=== PATIENT | female | born 1980 | race Caucasian/White ===

== ENCOUNTER 2016-09-22 15:56 | Emergency (ER) | payer OTHER ==
[~2016-09-22] VITALS: Ht 170.2 cm; Wt 89.5 kg
[~2016-09-22 15:56] MED LIST: DOCU-41 PO; IBUP-1827 PO; OXYC1TAB24 PO; PREN1TAB69 PO
[2016-09-22 16:22] VITALS: BP 135/87; PULSE 110; RESP 16; O2SAT 100
--- NOTE | 2016-09-22 17:55 | ED.REPORT ---
HPI-Abd Pain F Under 42 Date of Service Sep 22, 2016 ED Provider: [place] History of Present Illness: rigt upper quadrant discomfort increasing over the last month with acid reflux. describes a pressure that is now a pain. no hx of gallbladder issues. vanessa case is primary care. saw primary last week, referred for a ct scan. decreased appitiete, full very fast oatmeal this am with sugar and raisins, at lunch had raisin bread toast with butter, 5/10 now last night was a 7/10 Nursing Notes Stated Complaint: PAIN AND PRESSURE UNDER RIGHT RIBS, SENT FROM Chief Complaint: Female Abdominal Pain Nursing Notes Reviewed: Yes Allergies: Uncoded Allergies: BANDAIDS (Allergy, Unknown, HIVES,BLISTERS, 09/22/16) Scheduled Docusate Sodium (Colace) 100 Mg Capsule 100 MG PO BID Vit/Fe Fumarate/Fa-Expunged Drug, Do (-Expunged Drug, Do Not Renew!) 1 Each Tablet 1 EACH PO DAILY Scheduled PRN Ibuprofen (Ibuprofen) 600 Mg Tablet 600 MG PO Q6H PRN PRN For Pain oxyCODONE-Acetaminophen 5-325 mg (oxyCODONE-Acetaminophen 5-325 mg) 1 Tab Tablet 1-2 TAB PO Q4H PRN PRN For Pain General Time Seen by MD: 17:54 Chief Complaint Abdominal pain Hx Obtained From: Patient Sudden in Onset?: No Symptom Duration: Since onset Severity: Current: Pain level 5 out of 10 Past Medical History Past Medical History Denies: Asthma Past Surgical History Reports: (times 4) Smoking History Never Smoker Social History Alcohol Use: Denies alcohol use Drug Use: Denies drug use Other Social History: Occupation lives with , not working at present 09/22/2016 Ambulatory Status Independent Review of Systems Basic Review of Systems Eyes: Vision NL, No discharge Skin: No bruising, No rash, No itch Psychiatric: Normal thought content Physical Exam Initial Vital Signs Vital Signs (First) Date Time Temp Pulse Resp B/P Pulse Ox O2 Delivery O2 Flow Rate FiO2 09/22/16 16:22 36.6 110 16 135/87 100 Room Air Initial VS: Reviewed, Vital signs normal Head / Eyes: Atraumatic, Normocephalic, PERRL ENT: Mucous membranes moist, Conjunctiva normal, No scleral icterus Neck: Supple, Non-tender, Full range of motion Lymphatic: No lymphadenopathy Extremities: Vascular intact, Neuro intact, No swelling, No tenderness Skin: Warm, Dry, No cyanosis Neurologic: Alert, Oriented, Nonfocal Psychiatric: Mood/affect normal, Behavior normal, Normal thought content General/Constitutional: Awake, Alert, No acute distress, Well appearing, Well developed, Well hydrated Respiratory / Chest: Atraumatic, Breath sounds NL, Breath sounds = bilat, No respiratory distress Cardiovascular: Heart rate NL, Regular rhythm, Heart sounds NL, No gallop Abdomen: Atraumatic, Soft, Non-tender, McBurney's non-tender, No guarding, No rebound, BS normoactive, No distention Back: Atraumatic, Inspection NL, Full range of motion, Painless range of motion Interpretation & Diagnostics Interpretation & Diagnostics: Both CT and US are negative Lab Results Interpretation Result Diagram: 09/22/16 1746 09/22/16 1746 Test 09/22/16 17:46 09/22/16 19:40 White Blood Count 9.3th/mm3 (3.8-10.1) Red Blood Count 4.56mil/mm3 (3.90-5.20) Hemoglobin 10.1g/dL (12.0-15.6) Hematocrit 32.6% (35.0-46.0) Mean Corpuscular Volume 71.5fL (81-100) Mean Corpuscular Hemoglobin 22.1pg (27.0-35.0) Mean Corpuscular Hemoglobin Concent 31.0% (32.0-37.0) Red Cell Distribution Width 16.0% (12.3-15.4) Platelet Count 341bil/L (150-400) Neutrophils (%) (Auto) 69.1% (40-74) Lymphocytes (%) (Auto) 18.9% (14-46) Monocytes (%) (Auto) 7.8% (4-12) Eosinophils (%) (Auto) 3.5% (0-5) Basophils (%) (Auto) 0.5% (0-3) Sodium Level 138mEq/L (134-144) Potassium Level 3.5mEq/L (3.5-5.2) Chloride Level 101mEq/L (97-108) Carbon Dioxide Level 21mmol/L (18-29) Blood Urea Nitrogen 12mg/dL (6-20) Creatinine 0.67mg/dL (0.57-1.00) Estimat Glomerular Filtration Rate 144mL/min (>59) Glucose Level 104mg/dL (60-99) Calcium Level 9.8mg/dL (8.5-10.1) Magnesium Level 2.2mg/dL (1.6-2.6) Total Bilirubin 0.2mg/dL (0.0-1.2) Aspartate Amino Transf (AST/SGOT) 19U/L (0-50) Alanine Aminotransferase (ALT/SGPT) 17U/L (0-32) Alkaline Phosphatase 58U/L (25-150) Total Protein 8.5g/dL (6.4-8.4) Albumin 4.6g/dL (3.4-5.0) Lipase 57U/L (13-60) Hold Mitchell Top Tube Received (Received) Hold Urine Received (Received) Re-Eval/Medical Decision Med Decision/Clinical Course Med Decision/Clinical Course: 36 year old female presents for evualation of right sided abd pain of 1 months duration. Worse last night, took omeprazole with some decrease today in pain. UG of gallbladder is normal as is CTKUB. labs are normal. No sign of hernia or peritionitis Discharge & Departure Primary Impression: Abdominal pain Abdominal location: left upper quadrant Qualified Code: R10.12 - Left upper quadrant pain Disposition: Home Patient Instructions: Acute Abdominal Pain (ED), Gallbladder Ejection Fraction (GEN), Low Fat Diet (ED) Additional Instructions: Start omeprazole daily. This will help reduce acid in your stomach. Avoid high fat food. The ultrasound of the gallbladder did not show any stones or dilatation of the bilary ducts. I would suggest a hida scan to look at functioning of the gallbladder. You may also need a upper GI to actually look at the tissue. Please call your primary care and let them know what testing was done and what was suggested. REturn if fever or vomiting. Referrals: Chrystal Marcos (PCP) EDSupervising Provider for APC: Yobani Kelley MD copies to: Chrystal Marcos Sue ARNP Sep 22, 2016 17:55
[2016-09-22 18:04] LABS: BASOPHILS % (AUTO) 0.5 % (0-3); EOSINOPHILS % (AUTO) 3.5 % (0-5); MONOCYTES % (AUTO) 7.8 % (4-12); Mean Corpuscular Hemoglobin 22.1 pg (27.0-35.0); Mean Corpuscular Volume 71.5 fL (81-100); NEUTROPHILS % (AUTO) 69.1 % (40-74); Platelet Count 341 bil/L (150-400)
[2016-09-22 18:30] LABS: Magnesium 2.2 mg/dL (1.6-2.6)
[2016-09-22 20:00] VITALS: BP 109/82; PULSE 86; RESP 16; O2SAT 100
[2016-09-22 20:16] VITALS: BP 111/77; PULSE 78; RESP 14; O2SAT 98
--- NOTE | 2016-09-23 06:01 | DRSVH ---
PROCEDURE: US ABDOMEN, LIMITED ([id number]) INDICATIONS: right upper quadrant pain TECHNIQUE: Real-time focused scanning was performed of the abdomen, with image documentation. COMPARISON: None. FINDINGS: Unremarkable appearance of the gallbladder. No sonographic Yeung sign. No intra-or extrahe patic biliary ductal dilatation IMPRESSION: Negative examination as above. Normal appearance of the gallbladder. Dictated by: Luisito Lee M.D. on 09/22/2016 at 19:28 Approved by: Luisito Lee M.D. on 09/22/2016 at 19:29
--- NOTE | 2016-09-23 06:01 | DRSVH ---
PROCEDURE: CT KUB ([id number]) INDICATIONS: abd pain TECHNIQUE: Noncontrast 5 mm thick sections acquired from the diaphragms to the symphysis. 5 mm thick coronal an d sagittal reformats were then performed. For radiation dose reduction, the following was used: aut omated exposure control, adjustment of mA and/or kV according to patient size. COMPARISON: None. FINDINGS: Image quality: Excellent. Lung bases: Lung bases are clear. Heart size is normal. Urinary system: Both kidneys are normal in size. No kidney stones. No hydronephrosis or perinephri c fat stranding. Both ureters appear non-dilated throughout their expected courses. Bladder wall th ickness is normal; no calcified bladder stones. Other solid organs: Liver and spleen are normal in size. Gallbladder negative. Pancreas is normal in contours. No adrenal nodules. Peritoneum and bowel: Unenhanced bowel loops demonstrate normal wall thickness and caliber. No free fluid or air. Nodes and vessels: No retroperitoneal or mesenteric adenopathy by size criteria. Aorta and inferior vena cava are normal in caliber. Abdominal wall: No ventral hernias. Pelvis: No free pelvic fluid. No inguinal hernias or adenopathy. Bones: No suspicious bony lesions. No vertebral body compression fractures. IMPRESSION: No urolithiasis. No evidence of urinary obstruction. Normal appendix. No acute abnormality. Dictated by: Luisito Lee M.D. on 09/22/2016 at 19:42 Approved by: Luisito Lee M.D. on 09/22/2016 at 19:47
== END 2016-09-22 20:16 | disposition home or self-care (01) ==
LOC: SED 15:56
DX: R10.11 Right upper quadrant pain (principal)